=== PATIENT | male | born 1995 | race Caucasian/White ===

== ENCOUNTER 2020-06-27 10:52 | Outpatient (CLI) | payer BC, SELFPAY ==
--- NOTE | ~2020-06-27 | XR_ITS ---
XR chest 2V DATE: 06/27/2020 11:09 INDICATION: Nausea, vomiting TECHNIQUE: PA and lateral views COMPARISON: None FINDINGS: Normal heart size. No hilar or mediastinal enlargement. No pulmonary infiltrate or consolid ation, pleural effusion or pulmonary vascular congestion or pneumothorax. IMPRESSION: Negative Reviewed, dictated and finalized at location A. IMPRESSION: Negative
[2020-06-27 11:24] LABS: Hematocrit 45.6 % (42.0-52.0); Hemoglobin 15.8 g/dL (14.0-18.0); Mean Corpuscular HGB Conc 34.6 g/dl (32-36); Mean Corpuscular Hemoglobin 30.2 pg (26-34); Mean Platelet Volume 11.6 fl (7.4-10.4); Platelet Count Result 240 k/mm3 (150-375); Red Blood Count 5.24 M/mm3 (4.6-6.20); Red Cell Distribution Width 11.9 % (11.5-14.5); White Blood Count 9.1 K/mm3 (4.5-10.0)
[2020-06-27 11:39] LABS: Anion Gap 10 mmol/L (8-16); Blood Urea Nitrogen 11 mg/dL (9-20); Calcium 9.5 mg/dL (8.4-10.2); Carbon Dioxide 29 mmol/L (22-30); Chloride 101 mmol/L (98-107); Estimated Glomerular Filt Rate > 60; Glucose 84 mg/dL (75-110); Potassium 3.7 mmol/L (3.4-5.0); Sodium 140 mmol/L (137-145)
== END 2020-06-27 10:53 | disposition home or self-care (01) ==
LOC: ANHIMG 10:55
PROVIDERS: PCP Family Medicine; Visit Provider Nurse Practitioner Family
DX: R11.2 Nausea with vomiting, unspecified (principal)
CPT/HCPCS: 36415; 71046; 80048; 85027

== ENCOUNTER 2025-06-29 22:17 | Emergency (ER) | payer OTHER, SELFPAY ==
[2025-06-29 22:20] VITALS: BP 153/100; PULSE 122; RESP 20; TEMP 37; O2SAT 96
--- NOTE | 2025-06-29 23:00 | PC.NURSE ---
Per Dr. Ortega, sitter no longer needed. RINA Ferrera aware.
[2025-06-29 23:44] LABS: Alanine Aminotransferase 30 U/L (6-50); Albumin Level 5.0 g/dL (3.5-5.1); Alkaline Phosphatase 69 U/L (38-126); Anion Gap 9 mmol/L (4-12); Aspartate Amino Transferase 31 U/L (17-59); Bilirubin,Total 0.8 mg/dL (0.2-1.3); Blood Urea Nitrogen 8 mg/dL (9-20); Calcium 9.7 mg/dL (8.4-10.2); Carbon Dioxide 27 mmol/L (22-30); Chloride 103 mmol/L (98-107); Estimated CRCL calculation 128 ml/min; Estimated Glomerular Filt Rate > 60; Glucose 95 mg/dL (65-110); Potassium 3.7 mmol/L (3.4-5.0); Sodium 139 mmol/L (137-145); Total Protein 8.1 g/dL (6.3-8.2)
[2025-06-29 23:45] LABS: Hematocrit 47.9 % (42.0-52.0); Hemoglobin 16.0 g/dL (14.0-18.0); Immature Granulocyte Percent A 0.2 % (0-0.5); Lymphocytes Absolute Auto 2.26 K/mm3 (0.9-3.2); Mean Corpuscular HGB Conc 33.4 g/dl (32-36); Mean Corpuscular Hemoglobin 29.5 pg (26-34); Mean Corpuscular Volume 88.4 fl (80-100); Nucleated Red Blood Cells Absolute Auto 0.000 K/mm3 (0.0-0.012); Nucleated Red Blood Cells Perc 0.0 % (0.0-0.2); Platelet Count Result 344 k/mm3 (150-375); Red Blood Count 5.42 M/mm3 (4.6-6.20); White Blood Count 11.5 K/mm3 (4.5-10.0)
[2025-06-29 23:50] LABS: Add Urine Microscopic? YES; Appearance Urine Clear (Clear); Glucose Urine UA Negative (Negative); Leukocyte Esterase Ur Trace LEU/UL (Negative); Nitrate Urine Negative (Negative); Non Pathogenic Casts 0-2; Specific Grav Ur 1.012 (1.001-1.035)
--- NOTE | 2025-06-30 00:14 | ED_ITS ---
HPI - Psych General Chief Complaint: Psychiatric Symptoms Stated Complaint: psych Time Seen by Provider: 06/29/25 22:45 History of Present Illness HPI Narrative: 29-year-old male presenting to the emergency department with audible hallucinations for last several weeks. His family's providing collateral formation and states that about 4-5 weeks ago he had another episode that was similar where he was paranoid and felt like people were talking about him but known was visibly there. Patient is describing auditory hallucinations and providing him from sleeping at night. Symptoms on off for last few weeks. No suicidal ideation. Denies any homicidal ideation or previous psychiatric history aside from ADHD that he takes Vyvanse 4. Denies any symptoms such as chest pain, shortness a breath, nausea, vomiting abdominal pain, back pain, fever, chills. Endorses marijuana use and Vyvanse for ADHD but no other prescription medications or chronic psychiatric illness to his knowledge. Recently graduated college and has been having a difficult time with work. Related Data Allergies Allergy/AdvReac Type Severity Reaction Status Date / Time No Known Allergies Allergy Mild Verified 06/29/25 22:23 Review of Systems 2 Review of Systems: As reviewed above in HPI PMFSH Past Medical History Medical History COVID-19 Family History Family History Father Diabetes mellitus Sibling Family history of multiple sclerosis Mother Transverse myelitis Social History Social History Smoking status: Current some day smoker Tobacco type: e-cigarettes/vaping Second hand tobacco smoke exposure: Yes Alcohol intake: current Substance use: current Substance use type: marijuana Lack of Transportation: No Lack of Food: Never True Current Housing: I Have Housing Concerned About Future Housing: No Difficulty Paying Gas/Electric Bills: No Difficulty Paying for Meds: No Currently Unemployed: No Education: High School Diploma/GED Living arrangements: with family Occupation/Education: student Additional occupation/education comments: inorganic [employer] Gender identity (if verbalized by the patient): Male Exam 2 Narrative: GENERAL: [Well-appearing, well-nourished, and in no acute distress.] HEAD: [Normocephalic, atraumatic.] EYES: [PERRLA and EOMI.] ENT: Nares clear, no rhinorrhea or epistaxis. Mucous membranes moist. NECK: Supple. CHEST: [Clear to auscultation. No respiratory distress.] HEART: [Regular rate and rhythm]. No murmur heard. [Normal peripheral pulses.] ABDOMEN: [Soft, nondistended], [nontender], [No rigidity or guarding] EXTREMITIES: Normal range of motion. [No edema.] SKIN: Warm, dry, no rash. NEURO: [No focal deficits]. Alert and oriented [x3.] PSYCH: Describing auditory hallucinations were overall normal mood and affect. No suicidal or homicidality. Course Vital Signs Vital signs: Vital Signs Temperature 37.0 C 06/29/25 22:20 Pulse Rate 122 H 06/29/25 22:20 Respiratory Rate 20 06/29/25 22:20 Blood Pressure 153/100 H 06/29/25 22:20 Pulse Oximetry 96 06/29/25 22:20 Oxygen Delivery Room Air 06/29/25 22:20 Temperature 37.0 C 06/29/25 22:20 Pulse Rate 93 06/30/25 03:09 Respiratory Rate 19 06/30/25 03:09 Blood Pressure 149/88 H 06/30/25 03:09 Pulse Oximetry 98 06/30/25 03:09 Oxygen Delivery Room Air 06/29/25 22:20 MDM - Psych MDM Narrative Medical decision making narrative: 29-year-old male presenting to the emergency department with audible hallucinations for last several weeks. His family's providing collateral formation and states that about 4-5 weeks ago he had another episode that was similar where he was paranoid and felt like people were talking about him but known was visibly there. Patient is describing auditory hallucinations and providing him from sleeping at night. Symptoms on off for last few weeks. No suicidal ideation. Denies any homicidal ideation or previous psychiatric history aside from ADHD that he takes Vyvanse 4. Denies any symptoms such as chest pain, shortness a breath, nausea, vomiting abdominal pain, back pain, fever, chills. Endorses marijuana use and Vyvanse for ADHD but no other prescription medications or chronic psychiatric illness to his knowledge. Recently graduated college and has been having a difficult time with work. Patient is overall well-appearing not any acute distress. Mildly tachycardic but no significant vital anomalies otherwise. He is complaining of auditory hallucinations but no visual hallucinations, does not appear to be responding to internal stimuli denies any suicidality or homicidality. He is overall in his normal state of health takes Vyvanse for ADHD. Psychiatric clearance laboratory studies obtained. Symptoms consistent with psychosis versus schizophrenia versus sleep tip of a jauregui and anxiety. He has had more stressors in his life lately with his new job and difficulty after college graduation. Psych will be consulted upon clearance with laboratory studies. Laboratory studies are unremarkable. Patient is medically cleared for psychiatric evaluation and final disposition per their recommendations. Psychiatry team has recommended outpatient follow-up with safety plan. Patient is safe for discharge at this time. Vital signs normalized before discharge. Medical Records Attestation: I reviewed the patient's medical records. Lab Data Attestation: I reviewed the patient's lab results. 06/29/25 23:24 06/29/25 23:24 Labs: Lab Results 06/29/25 06/29/25 Range/Units 23:24 23:24 WBC 11.5 H (4.5-10.0) K/mm3 RBC 5.42 (4.6-6.20) M/mm3 Hgb 16.0 (14.0-18.0) g/dL Hct 47.9 (42.0-52.0) % MCV 88.4 (80-100) fl MCH 29.5 (26-34) pg MCHC 33.4 (32-36) g/dl RDW 11.9 (11.5-14.5) % Plt Count 344 (150-375) k/mm3 MPV 11.4 H (7.4-10.4) fl Immature Gran % (Auto) 0.2 (0-0.5) % Neut % (Auto) 72.5 (45.5-73.1) % Lymph % (Auto) 19.7 (18.3-44.2) % [place] % (Auto) 6.8 (2.6-8.5) % Eos % (Auto) 0.3 (0-4.4) % Baso % (Auto) 0.5 (0.2-1.2) % Lymph # (Auto) 2.26 (0.9-3.2) K/mm3 [place] # (Auto) 0.8 H (0.1-0.6) K/mm3 Eos # (Auto) 0.0 (0-0.3) K/mm3 Baso # (Auto) 0.1 (0.0-0.1) K/mm3 Abs Immat Gran (auto) 0.02 (0.00-0.031) K/mm3 Absolute Neuts (auto) 8.3 H (1.3-6.7) K/mm3 Absolute Nucleated RBC 0.000 (0.0-0.012) K/mm3 Nucleated RBC % 0.0 (0.0-0.2) % Sodium 139 (137-145) mmol/L Potassium 3.7 (3.4-5.0) mmol/L Chloride 103 (98-107) mmol/L Carbon Dioxide 27 (22-30) mmol/L Anion Gap 9 (4-12) mmol/L BUN 8 L (9-20) mg/dL Creatinine 0.93 (0.7-1.3) mg/dL Estim Creat Clear Calc 128 ml/min Estimated GFR > 60 (59 - ) Glucose 95 (65-110) mg/dL Calcium 9.7 (8.4-10.2) mg/dL Total Bilirubin 0.8 (0.2-1.3) mg/dL AST 31 (17-59) U/L ALT 30 (6-50) U/L Alkaline Phosphatase 69 (38-126) U/L Total Protein 8.1 (6.3-8.2) g/dL Albumin 5.0 (3.5-5.1) g/dL TSH (Reflex) 1.690 (0.465-4.68) uIU/mL Urine Color Yellow (Yellow) Urine Appearance Clear (Clear) Urine pH 7.0 (5.0-9.0) Ur Specific [place] 1.012 (1.001-1.035) Urine Protein Negative (Negative) mg/dL Urine Glucose (UA) Negative (Negative) mg/dL Urine Ketones Negative (Negative) mg/dL Ur Blood (Man) Negative (Negative) Urine Nitrate Negative (Negative) Urine Bilirubin Negative (Negative) Urine Urobilinogen 0.2 (<2.0) mg/dL Leukocyte Esterase Rfl Trace H (Negative) [place]/UL Urine RBC 0-2 (0-2) /hpf Urine WBC 0-5 (0-3) /hpf Ur Squamous Epith Cells None seen (Few) /hpf Urine Bacteria None seen /hpf Urine Casts 0-2 Ur Butalbital Screen Cancelled U Butalbital Confirm Cancelled Urine Opiates Screen Cancelled Ur Opiates Confirm Cancelled Ur Codeine Screen Cancelled Urine Codeine Confirm Cancelled Ur Morphine Screen Cancelled U 6-Acetylmorphine Conf Cancelled Ur Morphine Confirm Cancelled Ur Barbiturates Screen Cancelled Urine Barbiturates Cancelled Ur Amphetamines Screen Cancelled Cancelled U Amphetam Cnfrm GC/MS Cancelled U Amphetamines Confirm Cancelled U Methamphetamines Scrn Cancelled U Methamphetamin Confrm Cancelled Ur Amobarbital Screen Cancelled Ur Amobarbital Confirm Cancelled U Pentobarbital Scrn Cancelled U Pentobarbital Conf Cancelled U Phenobarbital Scrn Cancelled U Phenobarbital Confirm Cancelled U Secobarbital Screen Cancelled U Secobarbital Confirm Cancelled U Cocaine Metab Screen Cancelled U Cocaine Metab Confirm Cancelled Ur Benzoylecognine Conf Cancelled U Cannabinoids Screen Cancelled Urine Cannabinoids Cancelled Ur Carboxy THC Confirm Cancelled Adltrnts U Creatinine Cancelled Adlt U Specific [place] Cancelled Adulterants Ur Nitrites Cancelled Ethyl Alcohol < 10 (<10) mg/dL Influenza A (RT-PCR) Negative (Negative) Influenza B (RT-PCR) Negative (Negative) RSV (RT-PCR) Negative (Negative) SARS-CoV-2 RNA (RT-PCR) Negative (Negative) Discharge Plan Discharge Clinical Impression: Auditory hallucination Patient Disposition: Home Condition: Stable Instructions: Antibiotic Form Additional Instructions: Return with any emergent concerns. Patient Language: [place] Prescriptions: No Action lisdexamfetamine [Vyvanse] 30 mg capsule 30 mg PO DAILY Qty: 30 0RF Rx Instructions: Name brand only Follow-up/Referrals: Feliz Liu MD [Primary Care Provider] - Time of Disposition: 02:44
[2025-06-30 00:15] LABS: Thyroid Stimulating Hormone Reflex 1.690 uIU/mL (0.465-4.68)
[2025-06-30 00:20] LABS: Influenza A QL RT-PCR Negative (Negative); Influenza B QL RT-PCR Negative (Negative); RSV RNA, RT-PCR Negative (Negative); SARS-CoV-2 RNA PCR Negative (Negative)
[2025-06-30 03:09] VITALS: BP 149/88; PULSE 93; RESP 19; O2SAT 98
[2025-06-30 07:06] LABS: Cannabinoid Screen Urine Positive (Negative)
== END 2025-06-30 03:12 | disposition home or self-care (01) ==
PROVIDERS: Emergency Provider Student in an Organized Health Care Education/Training Program; PCP Family Medicine
DX: R44.0 Auditory hallucinations (principal); Z20.822 Contact with and (suspected) exposure to COVID-19; F90.9 Attention-deficit hyperactivity disorder, unspecified type; Z72.0 Tobacco use
CPT/HCPCS: 36415; 80053; 80307; 81001; 82077; 84443; 85025; 87637; 99284